=== PATIENT | female | born 1980 | race African-American/Black ===

== ENCOUNTER 2019-09-29 11:21 | Emergency (ER) | payer OTHER ==
[2019-09-29 11:37] VITALS: BMI 28.4
[2019-09-29] MEDS ORDERED: ACETAMINOPHEN 500 MG TABLET (FP) PO ONE (12:16)
[2019-09-29] MEDS ORDERED: ACETAMINOPHEN 325 MG TABLET (FP) ONE (12:22)
[2019-09-29 12:39] LABS: BASO % 0.4 % (0-2.0); EOS % 4.3 % (0-4.5); HEMATOCRIT 32.7 % (32.4-45.2); HEMOGLOBIN 10.6 GM/dL (10.7-15.3); LYMPH % 52.7 % (8-40); MCH 25.1 pg (25.7-33.7); MCHC 32.3 g/dl (32.0-36.0); MEAN CELL VOLUME 77.6 fl (80-96); MEAN PLT VOLUME 8.2 fl (7.5-11.1); MONO % 8.1 % (3.8-10.2); NEUT % 34.5 % (42.8-82.8); PLATELET COUNT 357 K/MM3 (134-434); RBC 4.21 M/mm3 (3.60-5.2); RDW 15.2 % (11.6-15.6); WHITE BLOOD COUNT 5.5 K/mm3 (4.0-10.0)
--- NOTE | 2019-09-29 12:59 | PDOC ---
History of Present Illness <Flakita Jimenez Buckasaf - Last Filed: 09/29/19 15:21> - General History Source: Patient Exam Limitations: No Limitations - History of Present Illness Travel History: No Initial Comments: 09/29/19 12:33 39-year-old female presents to ED with complaints of heavy vaginal bleeding over the past 12 days passing large clots a few days ago. Patient states has history of fibroids with embolization done about a year ago which she states did not improve her symptoms. Patient states that she is also anemic secondary to the fibroids but denies any shortness of breath, dizziness, weakness or headache. Patient does complain of mild mid suprapubic discomfort radiating to her lower back. Patient also states menstrual period is approximately 3 to 4 days late and unsure if she is . Timing/Duration: reports: constant Quality: reports: mild, cramping Abdominal Pain Onset Location: reports: suprapubic Pain Radiation: reports: back Activities at Onset: reports: none Aggravating Factors: improves with: None Alleviating Factors: improves with: None <Dejah Robb - Last Filed: 09/29/19 15:25> - General Chief Complaint: Vaginal Bleeding Stated Complaint: VAGINAL BLEEDING Time Seen by Provider: 09/29/19 11:59 Past History <BarbaraFlakita Henrry - Last Filed: 09/29/19 15:21> - Travel Traveled outside of the country in the last 30 days: No Close contact w/someone who was outside of country & ill: No - Past Medical History Anemia: Yes COPD: No - Psycho Social/Smoking Cessation Hx Smoking Status: No Smoking History: Never smoked Have you smoked in the past 12 months: No Number of Cigarettes Smoked Daily: 0 Hx Alcohol Use: No Drug/Substance Use Hx: No Substance Use Type: None Patient Lives Alone: No Lives with/in: spouse/SO <Dejah Robb - Last Filed: 09/29/19 15:25> - Past Medical History Allergies/Adverse Reactions: Allergies Allergy/AdvReac Type Severity Reaction Status Date / Time No Known Allergies Allergy Verified 09/29/19 11:31 Home Medications: Ambulatory Orders NK [No Known Home Medication] 09/29/19 Review of Systems - Review of Systems Able to Perform ROS?: No Is the patient limited German proficient: No Constitutional: No: Symptoms Reported HEENTM: No: Symptoms Reported Respiratory: No: Symptoms reported Cardiac (ROS): No: Symptoms Reported ABD/GI: Yes: Abdominal cramping : Yes: Discharge (vag) Musculoskeletal: No: Symptoms Reported Integumentary: No: Symptoms Reported Neurological: No: Symptoms reported Endocrine: No: Symptoms Reported Hematologic/Lymphatic: No: Symptoms Reported <Dejah Robb - Last Filed: 09/29/19 15:25> *Physical Exam - Vital Signs Last Vital Signs Temp Pulse Resp BP Pulse Ox 98.4 F 66 18 119/67 100 09/29/19 14:48 09/29/19 14:48 09/29/19 14:48 09/29/19 14:48 09/29/19 14:48 <Flakita Jimenez - Last Filed: 09/29/19 15:21> - Vital Signs Last Vital Signs Temp Pulse Resp BP Pulse Ox 97.9 F 75 18 106/54 L 100 09/29/19 11:32 09/29/19 11:32 09/29/19 11:32 09/29/19 11:32 09/29/19 11:32 - Physical Exam General Appearance: Yes: Nourished, Appropriately Dressed. No: Apparent Distress HEENT: positive: EOMI, ROBERTO, TMs Normal, Pharynx Normal. negative: Pale Conjunctivae Neck: positive: Supple Respiratory/Chest: positive: Lungs Clear, Normal Breath Sounds. negative: Respiratory Distress, Accessory Muscle Use Cardiovascular: positive: Regular Rhythm, Regular Rate. negative: Murmur Female Pelvic Exam: positive: cervical os closed, vaginal bleeding (Dark red in moderate amount no clots). negative: CMT, adnexal tenderness Gastrointestinal/Abdominal: positive: Soft. negative: Tenderness Musculoskeletal: negative: CVA Tenderness Extremity: positive: Normal Inspection Integumentary: positive: Normal Color, Warm, Moist Neurologic: positive: Motor Strength 5/5 (ambulatory) <Dejah Robb - Last Filed: 09/29/19 15:25> ED Treatment Course - LABORATORY CBC & Chemistry Diagram: 09/29/19 12:20 09/29/19 12:20 - ADDITIONAL ORDERS Additional order review: Laboratory Results 09/29/19 09/29/19 09/29/19 12:30 12:20 12:20 WBC RBC Hgb Hct MCV MCH MCHC RDW Plt Count MPV Absolute Neuts (auto) Neutrophils % Lymphocytes % Monocytes % Eosinophils % Basophils % Nucleated RBC % Sodium 138 Potassium 4.5 Chloride 108 H Carbon Dioxide 26 Anion Gap 5 L BUN 10.2 Creatinine 0.8 Est GFR (CKD-EPI)AfAm 106.13 Est GFR (CKD-EPI)NonAf 91.57 Random Glucose 79 Calcium 8.5 Total Bilirubin 0.2 AST 10 L ALT 12 L Alkaline Phosphatase 55 Total Protein 7.5 Albumin 3.4 Beta HCG, Quant < 1.0 Urine Color Yellow Urine Appearance Cloudy Urine pH 6.5 D Ur Specific [place] 1.023 Urine Protein Trace Urine Glucose (UA) Negative Urine Ketones Negative Urine Blood 3+ H Urine Nitrite Negative Urine Bilirubin Negative Urine Urobilinogen 1.0 Ur Leukocyte Esterase Negative Urine WBC (Auto) 2 Urine RBC (Auto) 8 Urine Casts (Auto) 1 U Epithel Cells (Auto) 7.9 Urine Bacteria (Auto) 58.7 Urine Yeast (Auto) Non seen 09/29/19 12:20 WBC 5.5 RBC 4.21 Hgb 10.6 L Hct 32.7 MCV 77.6 L MCH 25.1 L D MCHC 32.3 RDW 15.2 D Plt Count 357 MPV 8.2 Absolute Neuts (auto) 1.9 Neutrophils % 34.5 L D Lymphocytes % 52.7 H D Monocytes % 8.1 Eosinophils % 4.3 Basophils % 0.4 Nucleated RBC % 0 Sodium Potassium Chloride Carbon Dioxide Anion Gap BUN Creatinine Est GFR (CKD-EPI)AfAm Est GFR (CKD-EPI)NonAf Random Glucose Calcium Total Bilirubin AST ALT Alkaline Phosphatase Total Protein Albumin Beta HCG, Quant Urine Color Urine Appearance Urine pH Ur Specific [place] Urine Protein Urine Glucose (UA) Urine Ketones Urine Blood Urine Nitrite Urine Bilirubin Urine Urobilinogen Ur Leukocyte Esterase Urine WBC (Auto) Urine RBC (Auto) Urine Casts (Auto) U Epithel Cells (Auto) Urine Bacteria (Auto) Urine Yeast (Auto) 09/29/19 12:20 RBC 4.21 MCV 77.6 L MCHC 32.3 RDW 15.2 D MPV 8.2 Neutrophils % 34.5 L D Lymphocytes % 52.7 H D Monocytes % 8.1 Eosinophils % 4.3 Basophils % 0.4 - Medications Given in the ED: ED Medications Discontinued Medications Generic Name Dose Route Start Last Admin Trade Name Freq PRN Reason Stop Dose Admin Acetaminophen 975 mg 09/29/19 12:16 09/29/19 12:30 Tylenol - PO 09/29/19 12:17 975 mg ONCE ONE Administration <JimenezFlakitacorinne Sales - Last Filed: 09/29/19 15:21> - LABORATORY CBC & Chemistry Diagram: 09/29/19 12:20 09/29/19 12:20 - ADDITIONAL ORDERS Additional order review: 09/29/19 12:20 RBC 4.21 MCV 77.6 L MCHC 32.3 RDW 15.2 D MPV 8.2 Neutrophils % 34.5 L D Lymphocytes % 52.7 H D Monocytes % 8.1 Eosinophils % 4.3 Basophils % 0.4 - Medications Given in the ED: ED Medications Discontinued Medications Generic Name Dose Route Start Last Admin Trade Name Freq PRN Reason Stop Dose Admin Acetaminophen 975 mg 09/29/19 12:16 09/29/19 12:30 Tylenol - PO 09/29/19 12:17 975 mg ONCE ONE Administration <Dejah Robb - Last Filed: 09/29/19 15:25> Medical Decision Making - Medical Decision Making Vital Signs Temp Pulse Resp BP Pulse Ox 98.4 F 66 18 119/67 100 09/29/19 14:48 09/29/19 14:48 09/29/19 14:48 09/29/19 14:48 09/29/19 14:48 The patient was seen and evaluated in conjunction with midlevel provider under my direct supervision, ancillary studies were reviewed. I agree with the plan as outlined with CHELLE Robb. HPI, workup/dispo as outlined. H/H at baseline no acute changes. Electrolytes creatinine are also normal. UA with some blood but negative for infection otherwise. Ultrasound as documented, no acute pathology is noted. no e/o torsion, small fibroid/leiomyoma noted. no pelvic FF VS reviewed, wnl. anticipate discharge, pcp followup, return precautions 09/29/19 14:58 09/29/19 15:21 <Flakita Jimenez - Last Filed: 09/29/19 15:21> - Medical Decision Making 09/29/19 12:33 CC: Vag bleeding x 12 days. hx fibroids with embolization 1 year which she states did not seem to alleviate her vaginal bleeding. Patient states is borderline anemic secondary to the fibroids. Patient states menses last month was on the second and unsure if she is . Patient has no other complaints of her mild lower abdominal cramping rating to her back. Exam: Patient with mid suprapubic tenderness. Vital signs stable, dark red blood in vault cervical office closed no large clots Plan: CBC, comp, serum urinalysis urine culture and will order imaging. Patient also ordered for Tylenol for discomfort 09/29/19 15:23 Ultrasound shows 4 intramural uterine lesions the most prominent measuring 3.7 cm in diameter and probably representing leiomyomas on a statistical basis. No free intraperitoneal fluid is seen. No evidence of torsion to the right. Left ovary cannot be visualized. Patient will be discharged home to follow-up with [facility]. 09/29/19 15:24 Laboratory Tests 09/29/19 09/29/19 09/29/19 12:20 12:20 12:30 WBC 5.5 Hgb 10.6 L Hct 32.7 Plt Count 357 Neutrophils % 34.5 L D Lymphocytes % 52.7 H D Sodium 138 Potassium 4.5 Chloride 108 H Anion Gap 5 L BUN 10.2 Creatinine 0.8 Random Glucose 79 Calcium 8.5 Total Bilirubin 0.2 AST 10 L ALT 12 L Alkaline Phosphatase 55 Total Protein 7.5 Albumin 3.4 Urine Blood 3+ H Ur Leukocyte Esterase Negative Urine WBC (Auto) 2 Urine RBC (Auto) 8 Urine Yeast (Auto) Non seen <Dejah Robb - Last Filed: 09/29/19 15:25> Discharge <Flakita Jimenez - Last Filed: 09/29/19 15:21> - Discharge Information Problems reviewed: Yes <Dejah Robb - Last Filed: 09/29/19 15:25> - Discharge Information Clinical Impression/Diagnosis: Vaginal bleeding, Fibroid uterus Condition: Good Disposition: HOME - Follow up/Referral Referrals: Deepti Palacio MD [Primary Care Provider] - - Patient Discharge Instructions Patient Printed Discharge Instructions: DI for Uterine Fibroids Additional Instructions: At this time I recommend follow-up with [facility] and discuss today's visit and ultrasound findings. May take extra Tylenol or Motrin 600 mg for discomfort - Post Discharge Activity
[2019-09-29 13:05] LABS: EPI CELLS 7.9 /HPF (0-5/HPF); HYALINE CASTS 1 /lpf (0-8); PH,URINE 6.5 (5.0-8.0); URINE APPEARANCE CLOUDY; URINE BACTERIA 58.7 /hpf (NEGATIVE); URINE BILIRUBIN NEGATIVE (NEGATIVE); URINE COLOR YELLOW; URINE GLUCOSE (UA) NEGATIVE (NEGATIVE); URINE KETONE NEGATIVE (NEGATIVE); URINE LEUK ESTERASE NEGATIVE (NEGATIVE); URINE NITRITE NEGATIVE (NEGATIVE); URINE PROTEIN TRACE (NEGATIVE); URINE RBC 8 /hpf (0-4); URINE WBC 2 /hpf (0-5)
[2019-09-29 13:30] LABS: ALBUMIN 3.4 g/dl (3.4-5.0); BILIRUBIN,TOTAL 0.2 mg/dL (0.2-1); BLOOD UREA NITROGEN 10.2 mg/dL (7-18); CALCIUM 8.5 mg/dL (8.5-10.1); CREATININE 0.8 mg/dL (0.55-1.3); POTASSIUM 4.5 mmol/L (3.5-5.1); TOT PROT 7.5 g/dl (6.4-8.2)
[2019-09-29 13:38] LABS: YEAST NON SEEN (NEGATIVE)
[2019-09-29 14:49] VITALS: BP 119/67; PULSE 66; TEMP 98.4
== END 2019-09-29 15:41 | disposition home or self-care (01) ==
LOC: JER 11:21
DX: D25.1 Intramural leiomyoma of uterus (principal); Z86.2 Personal history of diseases of the blood and blood-forming organs and certain disorders involving the immune mechanism
CPT/HCPCS: 36415; 76856-TC; 80053; 81003; 84702; 85025; 87086; 99284-25

== ENCOUNTER 2019-10-15 13:10 | Emergency (ER) | payer OTHER ==
[2019-10-15 13:47] VITALS: BP 103/54; PULSE 81; TEMP 97.8; BMI 28.9
--- NOTE | 2019-10-15 14:26 | PDOC ---
History of Present Illness - General Chief Complaint: Vaginal Bleeding Stated Complaint: VAGINAL BLEEDING Time Seen by Provider: 10/15/19 14:24 History Source: Patient - History of Present Illness Timing/Duration: reports: other Past History - Past Medical History Allergies/Adverse Reactions: Allergies Allergy/AdvReac Type Severity Reaction Status Date / Time No Known Allergies Allergy Verified 10/15/19 13:43 Home Medications: Ambulatory Orders NK [No Known Home Medication] 09/29/19 Anemia: Yes COPD: No - Psycho Social/Smoking Cessation Hx Smoking Status: No Smoking History: Never smoked Have you smoked in the past 12 months: No Number of Cigarettes Smoked Daily: 0 Information on smoking cessation initiated: No Hx Alcohol Use: No Drug/Substance Use Hx: No Substance Use Type: None Review of Systems - Review of Systems Constitutional: No: Weakness Respiratory: No: Shortness of Breath Cardiac (ROS): No: Chest Pain ABD/GI: No: Nausea, Vomiting, Abdominal cramping *Physical Exam - Vital Signs Last Vital Signs Temp Pulse Resp BP Pulse Ox 97.8 F 81 17 103/54 L 100 10/15/19 13:43 10/15/19 13:43 10/15/19 13:43 10/15/19 13:43 10/15/19 13:43 - Physical Exam General Appearance: Yes: Appropriately Dressed. No: Apparent Distress HEENT: positive: Normal Voice Neck: positive: Supple Respiratory/Chest: negative: Respiratory Distress Gastrointestinal/Abdominal: positive: Soft. negative: Tender Integumentary: positive: Dry, Warm Neurologic: positive: Fully Oriented, Alert, Normal Mood/Affect Medical Decision Making - Medical Decision Making 10/15/19 14:32 39-year-old female, history of fibroid, s/p embolization over a year ago, here with intermittent vaginal bleeding >2 weeks. No heavy bleeding currently and no clots, abdominal pain, nausea or vomiting. Had brief episodes of dizziness this a.m. that has since resolved. No weakness, syncope or shortness of breath. Patient was seen for same 09/29 w/ Hgb of >10 and told to f/u with her PATIENT SERVICES REPRESENTATIVE. States she has an appointment in 3 days. see exam DUB 2/2 fibroids Seen for same 2 weeks ago with hemoglobin of 10 Non-compliant with iron S/p embolization procedure for fibroids in the past Has PATIENT SERVICES REPRESENTATIVE appointment in 3 days Stable w/ no dizziness/weakness currently Declines rpt crit today, prefers to wait for upcoming PATIENT SERVICES REPRESENTATIVE appt per pt, told to resume iron pills Reasons to return d/w pt Discharge - Discharge Information Problems reviewed: Yes Clinical Impression/Diagnosis: DUB (dysfunctional uterine bleeding) Condition: Good Disposition: HOME - Follow up/Referral - Patient Discharge Instructions Patient Printed Discharge Instructions: Uterine Fibroids Additional Instructions: Please follow up with your PATIENT SERVICES REPRESENTATIVE at next scheduled appt in 3 days - Post Discharge Activity Work/Back to School Note: Back to Work
== END 2019-10-15 14:38 | disposition home or self-care (01) ==
LOC: JER 13:10
DX: N93.8 Other specified abnormal uterine and vaginal bleeding (principal); Z86.2 Personal history of diseases of the blood and blood-forming organs and certain disorders involving the immune mechanism
CPT/HCPCS: 99282-25

== ENCOUNTER 2023-12-19 15:35 | Emergency (ER) | payer OTHER ==
[2023-12-19 15:48] VITALS: BP 109/64; PULSE 70; RESP 16; TEMP 98.6; BMI 27.1
[2023-12-19] MEDS ORDERED: ACETAMINOPHEN 500 MG TABLET (FP) ONE (16:29)
[2023-12-19] MEDS ORDERED: KETOROLAC TROMETHAMINE 60 MG/2 ML VIAL ONE (16:29)
[2023-12-19] MEDS: ACETAMINOPHEN 500 MG TABLET (FP) PO ONE (16:31)
[2023-12-19] MEDS: KETOROLAC TROMETHAMINE 30 MG/1 ML VIAL IM ONE (16:32)
== END 2023-12-19 17:41 | disposition home or self-care (01) ==
LOC: JERFT 15:35
PROC: 3E0233Z Introduction of Anti-inflammatory into Muscle, Percutaneous Approach (ICD-10-PCS; principal; 2023-12-19)
DX: M25.511 Pain in right shoulder (principal); S46.011A Strain of muscle(s) and tendon(s) of the rotator cuff of right shoulder, initial encounter; Y04.8XXA Assault by other bodily force, initial encounter
CPT/HCPCS: 73030-TC-RT-FY; 99284-25

== ENCOUNTER 2024-03-05 15:59 | Emergency (ER) | payer OTHER ==
[2024-03-05 16:06] VITALS: BP 95/60; PULSE 96; RESP 18; TEMP 98.4; BMI 27.1
[2024-03-05 17:29] LABS: EOS % 3.9 % (0-4.5); HEMATOCRIT 35.8 % (32.4-45.2); HEMOGLOBIN 12.1 GM/dL (10.7-15.3); LYMPH % 41.2 % (8-40); MCH 27.1 pg (25.7-33.7); MCHC 33.9 g/dl (32.0-36.0); MEAN CELL VOLUME 79.8 fl (80-96); MEAN PLT VOLUME 7.9 fl (7.5-11.1); MONO % 7.7 % (3.8-10.2); NEUT % 46.2 % (42.8-82.8); PLATELET COUNT 365 10^3/uL (134-434); RBC 4.48 M/mm3 (3.60-5.2); RDW 13.8 % (11.6-15.6); WHITE BLOOD COUNT 6.5 K/mm3 (4.0-10.0)
[2024-03-05] MEDS ORDERED: FLUCONAZOLE 150 MG TABLET PO ONE (17:34)
[2024-03-05] MEDS ORDERED: ACETAMINOPHEN 500 MG TABLET (FP) ONE (17:35)
[2024-03-05] MEDS: FLUCONAZOLE 150 MG TABLET PO ONE (17:45)
[2024-03-05] MEDS: ACETAMINOPHEN 500 MG TABLET (FP) PO ONE (17:45)
[2024-03-05 17:51] LABS: POTASSIUM 4.9 mmol/L (3.5-5.1)
[2024-03-05 17:53] LABS: CALCIUM 8.9 mg/dL (8.5-10.1)
[2024-03-05 17:54] LABS: ALBUMIN 3.7 g/dl (3.4-5.0); BLOOD UREA NITROGEN 11.6 mg/dL (7-18)
[2024-03-05 17:55] LABS: PH,URINE 5.5 (5.0-8.0); URINE APPEARANCE CLEAR; URINE BILIRUBIN NEGATIVE (NEGATIVE); URINE COLOR YELLOW; URINE GLUCOSE (UA) NEGATIVE (NEGATIVE); URINE KETONE NEGATIVE (NEGATIVE); URINE LEUK ESTERASE NEGATIVE (NEGATIVE); URINE NITRITE NEGATIVE (NEGATIVE); URINE PROTEIN NEGATIVE (NEGATIVE); URINE UROBILINOGEN 0.2 mg/dL (0.2-1.0)
[2024-03-05 17:57] LABS: CREATININE 0.9 mg/dL (0.55-1.3)
[2024-03-05 17:58] LABS: BILIRUBIN,TOTAL 0.4 mg/dL (0.2-1); TOT PROT 8.1 g/dl (6.4-8.2)
== END 2024-03-05 19:34 | disposition home or self-care (01) ==
LOC: JER 15:59
DX: R10.2 Pelvic and perineal pain (principal); B37.31 Acute candidiasis of vulva and vagina
CPT/HCPCS: 36415; 76830-TC; 80053; 81003; 85025; 87086; 87186; 87491; 87591; 87661; 99284-25